=== PATIENT | male | born 1985 ===

== ENCOUNTER → 2016-07-11 | Outpatient (CLI) | payer OTHER ==
--- NOTE | 2016-07-11 14:20 | DX ---
Left thumb - 3 views dated July 11, 2016 13:51 Indication: Trauma. Pain. Findings: A fracture plane traverses the palmar ulnar margin of the base of the distal phalanx of the thumb. The fracture extends to the margin of the interphalangeal joint line. The 1.5 x 4 mm corti mary chip fracture is nondisplaced. A second curvilinear bone chip is distracted off the distal tuft m easuring 3 x 1.5 mm. The thumb is otherwise normal. Impression: 1. Acute nondisplaced fracture base of distal phalanx. 2. Age indeterminate chip fracture off the distal bony tuft.
== END ==
LOC: BMCIMAGING 13:55
PROVIDERS: ATTEND Family Medicine
DX: S62.525A Nondisplaced fracture of distal phalanx of left thumb, initial encounter for closed fracture (principal)